=== PATIENT | male | born 2005 | race Two or more races ===

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

== ENCOUNTER 2025-02-21 20:18 | Emergency (ER) | payer OTHER ==
[~2025-02-21] VITALS: Ht 180.3 cm; Wt 81.6 kg
[2025-02-21] MEDS ORDERED: TETANUS & DIPHTHERIA TOX,ADULT 0.5 ML VIAL IM ONE (21:15)
[2025-02-21] MEDS ORDERED: DIPHTH,PERTUSS(ACELL),TET VAC 0.5 ML SYRINGE IM ONE (21:57)
== END 2025-02-21 22:18 | disposition home or self-care (01) ==
LOC: ER 20:19
DX: S61.012A Laceration without foreign body of left thumb without damage to nail, initial encounter (principal); W26.0XXA Contact with knife, initial encounter; Y93.89 Activity, other specified; Y92.69 Other specified industrial and construction area as the place of occurrence of the external cause; Y99.8 Other external cause status; Z88.1 Allergy status to other antibiotic agents; Z88.2 Allergy status to sulfonamides
CPT/HCPCS: 12001; 90471; 90714; J1670

== ENCOUNTER 2025-02-28 13:39 | Emergency (ER) | payer OTHER ==
[~2025-02-28] VITALS: Ht 177.8 cm; Wt 70.3 kg
== END 2025-02-28 15:21 | disposition home or self-care (01) ==
LOC: ER 13:40 → EMR PED 13:40
DX: Z48.02 Encounter for removal of sutures (principal); Z88.6 Allergy status to analgesic agent; Z88.2 Allergy status to sulfonamides